=== PATIENT | female | born 1965 | race Caucasian/White ===

== ENCOUNTER 2017-03-05 10:34 | Outpatient (CLI) | payer OTHER ==
--- NOTE | 2017-03-05 11:25 | Mammography Report ---
Bilateral mammogram: No previous studies available. CAD study utilized. Findings: Predominance of adipose tissue bilaterally. Focal asymmetry upper inner right breast. No microcalcification. Normal axilla. Impression: Focal asymmetry right breast. Comparison with previous studies is recommended. Previous studies are not available spot mag and sonographic examination advised. BI-RADS CATEGORY: 0 = Needs additional imaging evaluation ACR BI-RADS MAMMOGRAPHIC CODES: 0 = Needs additional imaging evaluation; 1 = Negative; 2 = Benign; 3 = Probably benign; 4 = Suspicious; 5 = Malignant; 6 = Known biopsy-proven malignancy COMMENT: 1. Dense breast tissue, i.e., adenosis, fibrocystic changes, etc., may obscure an underlying neoplasm. 2. Approximately 10% of cancers are not detected with mammography. 3. A negative mammography report should not delay biopsy if a clinically suspicious mass is present. COMMENT: Patient follow-up letters are generated in [employer].
== END 2017-03-05 10:35 | disposition home or self-care (01) ==
LOC: MAMMO 10:34
PROVIDERS: ATTEND Family Medicine
DX: Z12.31 Encounter for screening mammogram for malignant neoplasm of breast (principal)
CPT/HCPCS: 77067; G0202

== ENCOUNTER 2017-05-06 11:41 | Outpatient (CLI) | payer OTHER ==
--- NOTE | 2017-05-06 12:11 | Mammography Report ---
Spot compression magnification and 90 degree lateral of density upper inner right breast: Findings: There is complete effacement noted of the density. No mass or microcalcification seen. Impression: Benign findings. Annual followup recommended. BI-RADS CATEGORY: 2 = Benign ACR BI-RADS MAMMOGRAPHIC CODES: 0 = Needs additional imaging evaluation; 1 = Negative; 2 = Benign; 3 = Probably benign; 4 = Suspicious; 5 = Malignant; 6 = Known biopsy-proven malignancy COMMENT: 1. Dense breast tissue, i.e., adenosis, fibrocystic changes, etc., may obscure an underlying neoplasm. 2. Approximately 10% of cancers are not detected with mammography. 3. A negative mammography report should not delay biopsy if a clinically suspicious mass is present. COMMENT: Patient follow-up letters are generated in [employer].
== END 2017-05-06 11:42 | disposition home or self-care (01) ==
LOC: MAMMO 11:41
PROVIDERS: ATTEND Family Medicine
DX: R92.8 Other abnormal and inconclusive findings on diagnostic imaging of breast (principal)
CPT/HCPCS: G0206-RT